=== PATIENT | male | born 1990 | race Hispanic/Latino ===

== ENCOUNTER 2020-02-14 13:59 | Emergency (ER) | payer OTHER, SELFPAY ==
--- NOTE | 2020-02-14 15:01 | RAD ---
XR Chest 1 View Portable HISTORY: Chest pain, shortness of breath COMPARISON: None FINDINGS: The heart size is normal. The lungs are well expanded without focal areas of consolidation, pneumothorax or pleural effusions. IMPRESSION: No radiographic evidence of acute cardiopulmonary process.
[2020-02-15 12:47] LABS: SARS-CoV-2 MS2 Positive; SARS-CoV-2 N Gene Negative; SARS-CoV-2 S Gene Negative; SARS-CoV-2 by NAA Not Detected (NotDetected); SARS-CoV-2 orf1ab Negative
== END 2020-02-14 15:25 | disposition home or self-care (01) ==
LOC: ERS 13:59 → EDBD 13:59 → ERS 15:25
DX: J02.9 Acute pharyngitis, unspecified (principal); R05 Cough; R19.7 Diarrhea, unspecified; R07.9 Chest pain, unspecified; Z20.828 Contact with and (suspected) exposure to other viral communicable diseases
CPT/HCPCS: 71045; 87635; 93005; U0003